=== PATIENT | male | born 1985 | race Two or more races ===

== ENCOUNTER 2025-02-22 10:25 | Emergency (ER) | payer OTHER ==
[~2025-02-22] VITALS: Ht 165.1 cm; Wt 90.7 kg
[2025-02-22] MEDS ORDERED: FAMOTIDINE/PF 20 MG/2 ML VIAL IV STA (10:53)
[2025-02-22] MEDS ORDERED: ONDANSETRON HCL 2 MG/ML VIAL IV STA (10:53)
[2025-02-22] MEDS ORDERED: 0.9 % SODIUM CHLORIDE 2,000 ML IV STA (10:53)
[2025-02-22 11:55] LABS: BASO % 0.2 % (0.1-1.2); EOS # 0.20 (0.04-0.54); EOS % 1.8 % (0.7-7.0); LYMPH # 1.21 (1.18-3.74); LYMPH % 11.1 % (19.3-53.1); MEAN PLATELET VOLUME 9.30 fl (9.4-12.4); MONO # 0.58 (0.24-0.82); MONO % 5.3 % (4.7-12.5); NEUT # 8.84 (1.56-6.13); NEUT % 81.1 % (34.0-71.1); RED CELL DISTRIBUTION WIDTH 12.4 % (11.6-14.4)
[2025-02-22 12:44] LABS: BUN CREA RATIO 21.0 (7.0-25.0); CREATININE SERUM 1.0 mg/dL (0.70-1.30); GFR 81.94; GLUCOSE FASTING 122.0 mg/dL (65-100); OSMOLALITY SERUM 286.0 MOSM/KG (275-295)
[2025-02-22 13:00] LABS: INR 1.02
== END 2025-02-22 14:14 | disposition home or self-care (01) ==
LOC: ER 10:25
PROVIDERS: General Practice
DX: R00.2 Palpitations (principal); R07.89 Other chest pain; T40.725A Adverse effect of synthetic cannabinoids, initial encounter; Z88.0 Allergy status to penicillin